=== PATIENT | male | born 1980 | race Caucasian/White ===

== ENCOUNTER 2017-04-11 11:50 | Emergency (ER) | payer MEDICAID ==
[2017-04-11 12:05] VITALS: TEMP 98.2
--- NOTE | 2017-04-11 12:14 | CPEKG ---
Heart Rate: 79 RR Interval: 759 P-R Interval: 168 QRSD Interval: 92 QT Interval: 380 QTC Interval: 436 P Denton: 69 QRS Denton: 83 T Wave Denton: 65 EKG Severity - BORDERLINE ECG - EKG Impression: SINUS RHYTHM EKG Impression: BORDERLINE T ABNORMALITIES, ANT-LAT LEADS Electronically Signed By: Makenzie Kothari 11-Apr-2017 15:50:33
[2017-04-11 12:49] LABS: % IMMATURE GRANULYOCYTES 0.1 % (0.0-1.1); ABSOLUTE IMMATURE GRANULOCYTES 0.01 10^3/uL (0.00-0.10); ADD DIFF? NO; ADD MORPH? NO; ADD SCAN? NO; ATYPICAL LYMPHOCYTE FLAG 10 (0-99); FRAGMENT RBC FLAG 0 (0-99); HEMATOCRIT 43.2 % (40.0-51.0); HEMOGLOBIN 15.7 g/dL (13.7-17.5); LEFT SHIFT FLG 0 (0-99); LIPEMIA HEMOLYSIS FLAG 90 (0-99); MEAN CELL HEMOGLOBIN CONCENTR. 36.3 g/dL (32.4-36.7); MEAN CELL VOLUME 88.2 fL (81.5-99.8); MEAN PLATELET VOLUME 9.3 fL (8.7-11.7); PLATELET CLUMPS FLAG 0 (0-99); PLATELET COUNT 219 10^3/uL (150-400); RED CELL DISTRIBUTION WIDTH 11.6 % (11.5-15.2)
[2017-04-11 12:56] LABS: ANION GAP 11 mEq/L (8-16); CALCIUM 9.9 mg/dL (8.5-10.4); CARBON DIOXIDE 23 mEq/l (22-31); CHLORIDE 101 mEq/L (97-110); CREATININE 0.9 mg/dL (0.7-1.3); GLOMERULAR FILTRATION RATE > 60; GLUCOSE 112 mg/dL (70-100); POTASSIUM 4.4 mEq/L (3.5-5.2); SODIUM 135 mEq/L (134-144)
[2017-04-11 13:08] LABS: TROPONIN I < 0.012 ng/mL (0.000-0.034)
--- NOTE | 2017-04-11 14:23 | EDPHY ---
H & P Stated Complaint: Intermit L lat CP;sxs sporadic "for a while";worse x 1 day - Personal History Current Tetanus Diphtheria and Acellular Pertussis (TDAP): Yes - Medical/Surgical History Hx Asthma: No Hx Chronic Respiratory Disease: No Hx Diabetes: No Hx Cardiac Disease: No Hx Renal Disease: No Hx Cirrhosis: No Hx Alcoholism: No Hx HIV/AIDS: No Hx Splenectomy or Spleen Trauma: No Other PMH: PTSD/bilateral inguinal hernia, ear sx, anxiety/CHOLY/APPY. R thumb surg - Social History Smoking Status: Current every day smoker Time Seen by Provider: 04/11/17 12:19 HPI/ROS: Chief complaint: Chest pain History of present illness: This is a 36-year-old male who presents to the emergency department for chest pain. Patient reports the onset of symptoms over the last day. States pain is primarily on the left side. He reports a soreness on the left side. It occasionally radiates into the left arm. He denies precipitating factors. He denies alleviating factors. He denies other associated signs or symptoms including no fevers, no cold symptoms, no cough or trouble breathing, no pain or swelling in the legs. He has a long history of anxiety and has been on Xanax for a long time but has been slowly decreasing the dose and is wondering if anxiety could be contributing to his symptoms. Review of systems: A 10 point review of systems was obtained and other than described above was negative (Naun Tomlinson) - Physical Exam Exam: General Appearance: Alert, nontoxic. Eyes: Pupils equal and round no pallor or injection. ENT, Mouth: Mucous membranes moist. Respiratory: There are no retractions, lungs are clear to auscultation. Cardiovascular: Regular rate and rhythm. Gastrointestinal: Abdomen is soft and non tender, no masses, bowel sounds normal. Neurological: Alert and oriented x4. Strength and sensation intact and symmetrical. Skin: Warm and dry, no rashes. Musculoskeletal: Neck is supple non tender. Extremities are symmetrical, full range of motion. No erythema, edema or asymmetry of the lower extremities. No evidence of DVT. Psychiatric: Patient is oriented X 3, there is no agitation. (Naun Tomlinson) Constitutional: Initial Vital Signs Temperature (C) 36.8 C 04/11/17 11:55 Heart Rate 90 04/11/17 11:55 Respiratory Rate 18 04/11/17 11:55 Blood Pressure 122/77 H 04/11/17 11:55 O2 Sat (%) 97 04/11/17 11:55 O2 Delivery Mode Room Air Allergies/Adverse Reactions: acetaminophen [From Vicodin] Allergy (Verified 04/11/17 11:59) amoxicillin Allergy (Verified 04/11/17 11:59) hydrocodone bitartrate [From Vicodin] Allergy (Verified 04/11/17 11:59) Penicillins Allergy (Verified 04/11/17 11:59) tramadol Allergy (Verified 04/11/17 11:59) Home Medications: Medication Instructions Recorded ALPRAZolam [Xanax 0.25 MG (*)] 04/23/15 Medical Decision Making ED Course/Re-evaluation: Patient is discussed with my secondary supervising physician Dr. Makenzie Kothari. Patient presents to the emergency department for chest pain. He is nontoxic. Afebrile and vital signs are stable. Physical exam is unremarkable. Lab studies, chest x-ray and EKG unremarkable. My suspicion for serious underlying pathology is low. I believe he is appropriate for outpatient follow-up for further evaluation and care. He is referred to primary care. Home care is discussed. Return precautions are given. Patient voiced understanding and agreement with plan. (Naun Tomlinson) Differential Diagnosis: Included but not limited to anxiety, musculoskeletal pain, reflux, GERD, cardiac dysrhythmia, PE, pulmonary infections, pneumothorax, ACS (Naun Tomlinson) Other Provider: The patient was evaluated and managed by the Physician Radiology Physician/ Nurse Practitioner. I discussed the patient's presentation and course with the midlevel provider with them and agree with the evaluation. My co-signature indicates that I have reviewed this chart and I agree with the findings and plan of care as documented. I am the secondary supervising physician. (Makenzie Kothari) - Data Points Laboratory Results: Laboratory Results 04/11/17 12:40 04/11/17 12:40 Departure - Departure Disposition: Home, Routine, Self-Care Clinical Impression: Chest pain Condition: Good Instructions: Chest Pain (ED) Additional Instructions: Follow-up with a primary care doctor for continued evaluation and care If symptoms worsen or new symptoms develop return to the emergency room for recheck Referrals: NONE *PRIMARY CARE P,. [Primary Care Provider] - As per Instructions [facility],. [Clinic] - As per Instructions
[2017-04-11 14:39] VITALS: BP 134/82; PULSE 78; RESP 18; O2SAT 94
== END 2017-04-11 14:39 | disposition home or self-care (01) ==
DX: R07.9 Chest pain, unspecified (principal); F17.200 Nicotine dependence, unspecified, uncomplicated

== ENCOUNTER 2018-03-28 19:33 | Emergency (ER) | payer SELFPAY ==
[2018-03-28 19:39] VITALS: BP 129/82
--- NOTE | 2018-03-28 19:57 | EDPHY ---
HPI/HX/ROS/PE/MDM Narrative: CHIEF COMPLAINT: Sore throat, dysphagia, fever HISTORY OF PRESENT ILLNESS: This patient is a 37 year old male complaining of throat pain and dysphagia. Two weeks ago, he developed pain in the area just to the left of his laryngeal prominence. His discomfort now radiates to the left. He complains of dysphagia and odynophagia. He denies swallowing any foreign body or choking on any food recently. The patient has felt febrile several times during the past two weeks and reports an intermittent mild fever of 99.9 degrees. He feels generally weak and fatigued. He has had difficulty completing his normal work activities which involve heavy lifting. He has tried a heating pad and ibuprofen for pain relief , last dose 4 hours prior to arrival. The patient endorses some otalgia on the left. He denies rhinorrhea, cough, or other URI symptoms. He reports he was recently on Cipro for one month for a prostate problem. No chills, chest pain, shortness of breath, palpitations, vomiting, diarrhea, urinary complaints, headache, lightheadedness. REVIEW OF SYSTEMS: A comprehensive 10 system review of systems is otherwise negative aside from elements mentioned in the history of present illness and medical decision making. PAST MEDICAL HISTORY: PTSD, anxiety. Bilateral inguinal hernias. Cholecystectomy. Appendectomy. Hand surgery. SOCIAL HISTORY: Current tobacco use. Employed. Lives in [place]. VITAL SIGNS: Reviewed by me GENERAL: Well-developed, well-nourished, resting comfortably in no respiratory distress. HEENT: Atraumatic. Eyes: No icterus, no injection. Mouth: moist mucous membranes. No erythema or lesions. Neck: Questionable mild swelling to the left anterior neck. Shotty adenopathy on the left. LUNGS: Clear to auscultation bilaterally, no wheezes, rhonchi or rales. CARDIAC: Regular rate and rhythm, no rubs, murmurs or gallops. ABDOMEN: Soft, nontender, nondistended, bowel sounds normal. BACK: No CVA tenderness. EXTREMITIES: No trauma. No edema. Range of motion is normal throughout. NEURO: Alert and oriented, grossly nonfocal. SKIN: Warm and dry, no rash. PSYCHIATRIC: Normal mentation, no agitation. Portions of this note were transcribed by a medical library assistant. I personally performed a history, physical exam, medical decision making, and confirmed accuracy of information the transcribed note. ED Course: 37 y/o male presents with throat pain and anterior neck pain. Throat is not erythematous on exam. Patient does have some swelling and tenderness to the anterior neck on palpation and mild left lymphadenopathy. Plan for x-ray or chest and neck for further evaluation. 20:24 Reviewed x-rays. No acute findings in the throat or chest. Reassessed patient. Plan to discharge home in good condition with prescription for azithromycin, 500mg. The first dose will be administered here in the emergency department. He will follow up with otolaryngology for further evaluation. Return precautions discussed. He is comfortable with this plan. MDM: Differential diagnoses for the patient's symptom complex was considered including but not limited to adenitis, lymphadenopathy, upper respiratory infection, pharyngitis, thyroid mass, thyroid nodule, soft tissue mass of the neck. - Data Points Imaging Results: Chest X-Ray 03/28/18 19:57 Impression: No acute findings in the chest. Soft Tissue Neck X-Ray 03/28/18 19:57 Impression: No acute findings. Imaging: I viewed and interpreted images myself Medications Given: Discontinued Medications Azithromycin (Zithromax) 500 mg PO EDNOW ONE PRN Reason: Protocol Stop: 03/28/18 20:03 Last Admin: 03/28/18 20:15 Dose: 500 mg General Time Seen by Provider: 03/28/18 19:42 Initial Vital Signs: Initial Vital Signs Temperature (C) 36.7 C 03/28/18 19:35 Heart Rate 85 03/28/18 19:35 Respiratory Rate 18 03/28/18 19:35 Blood Pressure 129/82 H 03/28/18 19:35 O2 Sat (%) 97 03/28/18 19:35 O2 Delivery Mode Room Air Allergies/Adverse Reactions: acetaminophen [From Vicodin] Allergy (Verified 03/28/18 19:38) amoxicillin Allergy (Verified 03/28/18 19:38) hydrocodone bitartrate [From Vicodin] Allergy (Verified 03/28/18 19:38) Penicillins Allergy (Verified 03/28/18 19:38) tramadol Allergy (Verified 03/28/18 19:38) Home Medications: Medication Instructions Recorded ALPRAZolam [Xanax 0.25 MG (*)] 04/23/15 Atenolol 03/28/18 Azithromycin [Zithromax] 250 mg PO DAILY #4 tab 03/28/18 Departure - Departure Disposition: Home, Routine, Self-Care Clinical Impression: Odynophagia, Neck pain Condition: Good Instructions: Neck Pain (ED) Additional Instructions: 1. Take azithromycin as prescribed. 2. Follow up with an ear, nose, and throat provider for further evaluation, within one week. 3. Return to the emergency department for fever, chest pain, shortness of breath or difficulty breathing, inability to swallow, severe pain, or other worsening of condition. Referrals: Davide Guerra MD [Medical Doctor] - As per Instructions Prescriptions: Azithromycin [Zithromax] 250 mg PO DAILY #4 tab Report Scribed for: Makenzie Kothari Report Scribed by: Noemi Boggs Date of Report: 03/28/18 Time of Report: 19:47
[2018-03-28] MEDS ORDERED: AZITHROMYCIN 250 MG TAB PO ONE (20:02)
== END 2018-03-28 20:39 | disposition home or self-care (01) ==
DX: R07.0 Pain in throat (principal); R50.9 Fever, unspecified; R13.10 Dysphagia, unspecified